=== PATIENT | male | born 1945 | race Caucasian/White ===

== ENCOUNTER 2019-06-19 07:45 | Day surgery (SDC) | payer OTHER ==
[2019-06-16 15:32] LABS: BASOPHILS # (AUTO) 0.01 x10^3/uL (0-0.1); BASOPHILS % (AUTO) 0 % (0-1); EOSINOPHILS % (AUTO) 2 % (1-7); LYMPHOCYTES # (AUTO) 0.49 x10^3/uL (1-3.4); LYMPHOCYTES % (AUTO) 10 % (22-44); MD NO; MEAN CORPUSCULAR HEMOGLOBIN 32.8 pg (27.5-34.5); MEAN CORPUSCULAR HGB CONC 33.2 g/dL (33.2-36.2); MEAN CORPUSCULAR VOLUME 98.8 fL (81-97); MEAN PLATELET VOLUME 7.9 fL (7.4-10.4); MONOCYTES # (AUTO) 0.43 x10^3/uL (0.2-0.8); MONOCYTES % (AUTO) 9 % (2-9); NEUTROPHILS # (AUTO) 3.94 x10^3/uL (1.8-6.8); NEUTROPHILS % (AUTO) 79 % (42-75); PLATELET COUNT 192 x10^3/uL (130-400); RED BLOOD COUNT 4.36 x10^6/uL (4.38-5.82); RED CELL DISTRIBUTION WIDTH 12.7 % (9.4-14.8)
[2019-06-16 15:45] LABS: ALANINE AMINOTRANSFERASE 15 U/L (12-78); ALBUMIN 3.6 g/dL (3.4-5.0); ANION GAP 5 mmol/L (5-15); CALCIUM 8.5 mg/dL (8.5-10.1); CHLORIDE 104 mmol/L (98-107); CREATININE 0.78 mg/dL (0.7-1.3)
[2019-06-16 15:48] LABS: ALKALINE PHOSPHATASE 101 U/L (45-117); BILIRUBIN,TOTAL 0.6 mg/dL (0.2-1.0); TOTAL PROTEIN 7.4 g/dL (6.4-8.2)
[~2019-06-19] VITALS: Ht 167.6 cm; Wt 79.7 kg
[~2019-06-19 07:45] MED LIST: EPINEPHRINE 1 MG/ML, 1ML ONE; KETOROLAC 60 MG/2 ML ONE; LISI-167 PO; PROP10DR4 RIGHTEYE; ROPIvacaine/PF 0.2%, 20 ML ONE; SODIUM CHLORIDE 0.9% 50 ML ONE; TRANEXAMIC ACID 100 MG/ML, 10ML ONE; VANCOMYCIN 1,000 MG ONE
[2019-06-19] MEDS ORDERED: MIDAZOLAM 1 MG/ML, 2ML ONE (08:51)
[2019-06-19] MEDS ORDERED: FENTANYL PF 100 MCG/2ML ONE ×3 (08:51→12:05)
[2019-06-19 08:55] VITALS: BP 149/79
[2019-06-19] MEDS ORDERED: LACTATED RINGERS 1,000 ML IV SCH (09:00)
[2019-06-19] MEDS ORDERED: TAMSULOSIN 0.4 MG CAP.ER.24H PO ONE (09:00)
[2019-06-19] MEDS ORDERED: GABAPENTIN 300 MG CAPSULE PO ONE (09:00)
[2019-06-19] MEDS ORDERED: LIDOCAINE-MPF 1%, 2ML INFIL ONE (09:00)
[2019-06-19] MEDS ORDERED: ACETAMINOPHEN 500 MG TABLET PO ONE (09:00)
[2019-06-19] MEDS ORDERED: FENTANYL PF 250 MCG/5ML ONE (10:07)
[2019-06-19] MEDS ORDERED: CEFAZOLIN 1,000 MG ONE (10:25)
[2019-06-19] MEDS ORDERED: BUPIVACAINE/PF 0.25% ONE (10:25)
[2019-06-19] MEDS ORDERED: PROPOFOL 10 MG/ML, 20ML ONE (10:25)
[2019-06-19] MEDS ORDERED: DEXAMETHASONE 4 MG/ML, 1ML ONE (10:25)
[2019-06-19] MEDS ORDERED: ONDANSETRON 2MG/ML, 2ML ONE (10:25)
[2019-06-19] MEDS ORDERED: MEPERIDINE/PF 25MG/ML,1ML IVPush PRN (11:00)
[2019-06-19] MEDS ORDERED: hydrALAzine 20 MG/ML, 1ML IV PRN (11:00)
[2019-06-19] MEDS ORDERED: METOPROLOL 1 MG/ML, 5ML IV PRN (11:00)
[2019-06-19] MEDS ORDERED: ALBUTEROL/IPRATROPIUM 2.5MG/0.5MG, 3 ML NPPB PRN (11:00)
[2019-06-19] MEDS ORDERED: PROMETHAZINE 25 MG/ML, 1ML IV PRN (11:00)
[2019-06-19] MEDS ORDERED: MIDAZOLAM 1 MG/ML, 2ML IV PRN (11:00)
[2019-06-19] MEDS ORDERED: HYDROmorphone 2 MG/ML, 1ML IVPush PRN ×2 (11:00→11:30)
[2019-06-19] MEDS ORDERED: OXYcodone 5 MG/5 ML ORAL.SOL UDC PO PRN (11:00)
[2019-06-19] MEDS ORDERED: D5%-0.45% NACL 1,000 ML IV SCH (11:16)
[2019-06-19] MEDS: FENTANYL PF 100 MCG/2ML IV PRN ×4 (11:28→12:36)
[2019-06-19] MEDS ORDERED: SENNA/DOCUSATE TABLET PO PRN (11:30)
[2019-06-19] MEDS ORDERED: ARTIFICIAL TEARS 15 DROP/ML BOTTLE OP PRN (11:30)
[2019-06-19] MEDS ORDERED: PSYLLIUM PACKET PO PRN (11:30)
[2019-06-19] MEDS ORDERED: ALUMINUM/MAG/SIMETHICONE 30 ML UDC PO PRN (11:30)
[2019-06-19] MEDS ORDERED: MAGNESIUM HYDROXIDE 8%, 30ML UDC PO PRN (11:30)
[2019-06-19] MEDS ORDERED: ONDANSETRON 4 MG TABLET PO PRN (11:30)
[2019-06-19] MEDS ORDERED: ACETAMINOPHEN 500 MG TABLET PO SCH (11:30)
[2019-06-19] MEDS ORDERED: DIPHENHYDRAMINE 25 MG CAPSULE PO PRN (11:30)
[2019-06-19] MEDS ORDERED: OXYcodone IR 5MG TABLET PO PRN (11:30)
[2019-06-19] MEDS ORDERED: PROMETHAZINE 25 MG/ML, 1ML IM PRN (11:30)
[2019-06-19] MEDS ORDERED: PROMETHAZINE 12.5 MG SUPP PR PRN (11:30)
[2019-06-19] MEDS ORDERED: SCOPOLAMINE PATCH, 1.5MG PATCH.TD72 TD SCH (11:30)
[2019-06-19] MEDS ORDERED: BISACODYL 10 MG SUPP PR PRN (11:30)
[2019-06-19] MEDS ORDERED: DIAZEPAM 5 MG TABLET PO PRN (11:30)
[2019-06-19] MEDS ORDERED: ONDANSETRON 2MG/ML, 2ML IV PRN (11:30)
[2019-06-19] MEDS ORDERED: ZOLPIDEM 5MG TABLET PO PRN (11:30)
[2019-06-19] MEDS ORDERED: TRANEXAMIC ACID 1,000 MG in SODIUM CHLORIDE 0.9% 100 ML IVPB ONE (11:45)
[2019-06-19] MEDS ORDERED: OXYcodone 5 MG/5 ML ORAL.SOL UDC ONE (11:52)
[2019-06-19] MEDS ORDERED: KETOROLAC 30 MG/1 ML ONE (11:52)
[2019-06-19] MEDS: KETOROLAC 30 MG/1 ML IV SCH ×2 (11:54→14:40)
[2019-06-19] MEDS ORDERED: CALCIUM/VITAMIN D3 250-125 TABLET PO SCH (12:00)
[2019-06-19 16:00] VITALS: BP 117/63
[2019-06-19] MEDS ORDERED: FERROUS SULFATE 325 MG TABLET PO SCH (18:00)
[2019-06-19] MEDS ORDERED: ASPIRIN 81 MG TABLET EC PO SCH (18:00)
[2019-06-19] MEDS ORDERED: CEFAZOLIN PMX 1GM/50ML 50 ML IVPB SCH (18:30)
[2019-06-19] MEDS ORDERED: DOCUSATE 100 MG CAPSULE PO SCH (21:00)
[2019-06-20] MEDS ORDERED: DEXAMETHASONE 4 MG/ML, 1ML IVPush ONE (06:00)
[2019-06-20] MEDS ORDERED: LISINOPRIL 10 MG TABLET PO SCH (09:00)
[2019-06-20] MEDS ORDERED: ASCORBIC ACID 500 MG TABLET PO SCH (09:00)
[2019-06-20] MEDS ORDERED: MULTIVITAMINS/MINERALS TABLET PO SCH (09:00)
== END 2019-06-19 17:00 | disposition home or self-care (01) ==
LOC: OUT 07:45 → 4NE 12:58 → OUT 17:00
PROVIDERS: ATTEND Orthopaedic Surgery
DX: M17.11 Unilateral primary osteoarthritis, right knee (principal); M21.161 Varus deformity, not elsewhere classified, right knee; M22.2X1 Patellofemoral disorders, right knee; M25.761 Osteophyte, right knee; I10 Essential (primary) hypertension; Z79.82 Long term (current) use of aspirin; Z79.891 Long term (current) use of opiate analgesic; Z79.899 Other long term (current) drug therapy; Z88.8 Allergy status to other drugs, medicaments and biological substances; Z96.652 Presence of left artificial knee joint; Z98.890 Other specified postprocedural states; Z82.61 Family history of arthritis
CPT/HCPCS: 27447; 36415; 64447; 73560; 80053; 85025; 87081; 87147; 93005; 97161; 97166; C1713; C1776; J0171; J0690; J1100; J1885; J2250; J2405; J2704; J2795; J3010; J3490; J7120; G0378; J3370